=== PATIENT | male | born 1960 | race Caucasian/White ===

== ENCOUNTER 2023-02-21 10:27 | Day surgery (SDC) | payer OTHER ==
[~2023-02-21] VITALS: Ht 175.3 cm; Wt 129.7 kg
[~2023-02-21 10:27] MED LIST: ALOG25TA2 PO; FLO0.4C PO; ceFAZolin inj. 3,000 MG in normal saline 100ml IV soln 100 ML IV ONE; famotidine 20mg tablet PO ONE; ringers solution, lacted 1,000 ML IV SCH
[2023-02-21 11:00] VITALS: BP 122/70
[2023-02-21] MEDS ORDERED: [UNRECOGNIZED DRUG - OTHER] PO (11:18)
[2023-02-21] MEDS ORDERED: BERBERINE PO (11:18)
[2023-02-21] MEDS ORDERED: CYAN50003 PO (11:18)
[2023-02-21] MEDS ORDERED: LUTE40CA PO (11:18)
[2023-02-21 11:48] LABS: BASOPHILS % (AUTO) 0.3 % (0-1); EOSINOPHILS # (AUTO) 0.1 X10'3 (0-0.9); EOSINOPHILS % (AUTO) 1.1 % (0-6); LYMPHOCYTES # (AUTO) 2.8 X10'3 (1.1-4.8); MEAN CORPUSCULAR HEMOGLOBIN 31.4 PG (27.0-31.0); MEAN CORPUSCULAR HGB CONC 33.9 g/dL (33.0-36.5); MEAN CORPUSCULAR VOLUME 92.7 FL (78-98); MONOCYTES # (AUTO) 0.6 X10'3 (0-0.9); MONOCYTES % (AUTO) 7.1 % (2-12); NEUTROPHILS # (AUTO) 4.7 X10'3 (1.8-7.7); NEUTROPHILS % (AUTO) 57.5 % (42-75); PRE OP HEMOGLOBIN 14.6 g/dL (14.0-17.9); PRE OP PLATELET COUNT 198 X10'3 (140-440); RED BLOOD COUNT 4.64 X10'6 (4.70-6.10); RED CELL DISTRIBUTION WIDTH 13.4 % (11.5-14.5)
[2023-02-21 12:01] LABS: CLARITY,URINE CLEAR (Clear); COLOR,URINE STRAW (Yellow); GLUCOSE, URINE NEGATIVE (Neg); KETONES,URINE NEGATIVE (Neg); LEUKOCYTE ESTERASE ,URINE TRACE (Neg); NITRITES, URINE NEGATIVE (Neg); OCCULT BLOOD,URINE NEGATIVE (Neg); PROTEIN,URINE NEGATIVE (Neg); UROBILINOGEN,URINE 0.2 E.U/dL (0.2-1.0)
[2023-02-21 12:02] LABS: ALBUMIN 3.4 G/DL (3.4-5.0); ALBUMIN/GLOBULIN RATIO 1.1 (1.1-1.5); ALKALINE PHOSPHATASE 47 IU/L (46-116); BLOOD UREA NITROGEN 15 MG/DL (7-18); BUN/CREATININE RATIO 15.5 (10.0-20.0); CALCIUM 8.4 MG/DL (8.5-10.1); CHLORIDE 105 MMOL/L (99-107); CREATININE 0.97 MG/DL (0.60-1.10); PRE OP ALT 71 U/L (30-65); PRE OP ANION GAP 9 (8-16); PRE OP AST 33 U/L (10-37); PRE OP BILIRUB, TOTAL 0.5 MG/DL (0.0-1.0); PRE OP GLUCOSE 191 MG/DL (70-104); PRE OP SODIUM 139 MMOL/L (135-145); TOTAL CARBON DIOXIDE 25.2 MMOL/L (24-32); TOTAL PROTEIN 6.6 G/DL (6.4-8.2); eGFR 78 ML/MIN
[2023-02-21 12:03] LABS: UA COLLECTION TYPE CLN CATCH MIDSTREAM
[2023-02-21 12:08] LABS: BACTERIA,URINE FEW /HPF (Neg); MUCUS STRANDS NONE SEEN /LPF (Neg); RBC,URINE NONE SEEN /HPF (0-2); SQUAMOUS EPITHELIAL CELL,UR FEW /LPF (FEW); WBC,URINE 0-4 /HPF (0-4)
[2023-02-21] MEDS ORDERED: tranexamic acid inj. 1,000 MG in normal saline IV soln 100ML IV ONE (12:59)
[2023-02-21] MEDS ORDERED: fentaNYL /PF 50mcg/ml 5ml ampule ONE (13:10)
[2023-02-21] MEDS ORDERED: midazolam 1 mg/ML 2ml injection ONE (13:10)
[2023-02-21] MEDS ORDERED: ondansetron/PF 4mg/2ml inj ONE (13:29)
[2023-02-21] MEDS ORDERED: LIDOcaine 2% (20mg/ml) 5ml vial ONE (13:29)
[2023-02-21] MEDS ORDERED: dexamethasone sod phosphate 4mg/ml inj. ONE (13:29)
[2023-02-21] MEDS ORDERED: ROPIVAcaine 0.5% (5mg/ml) 30ml vial ONE (13:29)
[2023-02-21] MEDS ORDERED: propofol inj 20 ML IV ONE ×2 (13:29)
[2023-02-21] MEDS ORDERED: bacitracin 15gm ointment TP ONE (14:12)
[2023-02-21 14:29] VITALS: BP 165/56
--- NOTE | 2023-02-21 14:29 | NUR ---
Received from OR via [facility], accompanied by Anesthesiologist and report given by HANNHA Anesthesiologist. PATIENT WAKING UP, DENIES PAIN, V/S WNL, 20G TO RIGHT HAND, LEFT FOOT COLIN WRAP DRESSING C/D/I. Addendum: 02/21/23 at 1443 by Mika Patel RN Amended: Links added.
[2023-02-21] MEDS ORDERED: proCHLORperazine 10 MG/2 ml inj IV PRN (14:30)
[2023-02-21] MEDS ORDERED: acetaminophen 1,000mg/100ml IV 100 ML IV PRN (14:30)
[2023-02-21] MEDS ORDERED: hydrALAZINE 20mg/ml inj. IV PRN (14:30)
[2023-02-21] MEDS ORDERED: labetalol 20mg/4ml (5mg/ml) syringe IV PRN (14:30)
[2023-02-21] MEDS ORDERED: meperidine/PF 25mg/ml syringe IV PRN ×3 (14:30)
[2023-02-21] MEDS ORDERED: morphine 4 MG/ML inj SYRINge IV PRN (14:30)
[2023-02-21] MEDS ORDERED: morphine 2 MG/ML inj. syringe IV PRN (14:30)
[2023-02-21] MEDS ORDERED: ondansetron/PF 4mg/2ml inj IV PRN (14:30)
[2023-02-21] MEDS ORDERED: ringers solution, lacted 1,000 ML IV SCH (14:30)
[2023-02-21 14:40] VITALS: BP 145/86
[2023-02-21 14:50] VITALS: BP 146/79
[2023-02-21 15:00] VITALS: BP 149/85
[2023-02-21 15:10] VITALS: BP 152/82
--- NOTE | 2023-02-21 15:14 | NUR ---
ALL DISCHARGE CRITERIA HAS BEEN MET. VSS, PAIN AT A TOLERABLE LEVEL, ABLE TO SAFELY AMBULATE AND TRANSFER SELF. IV TAKEN OUT WITHOUT ANY COMPLICATIONS. ALL DISCHARGE INSTRUCTIONS COVERED WITH PATIENT AND ALL QUESTIONS ANSWERED. PATIENT TAKEN OUT VIA WHEELCHAIR WITH ALL BELONGINGS TO PERSONAL VEHICLE WHERE FAMILY DROVE PATIENT HOME. Addendum: 02/21/23 at 1530 by Mika Patel RN Amended: Links added.
== END 2023-02-21 15:14 | disposition home or self-care (01) ==
LOC: PAS 10:27
PROVIDERS: ATTEND Podiatrist Foot & Ankle Surgery
DX: S86.312A Strain of muscle(s) and tendon(s) of peroneal muscle group at lower leg level, left leg, initial encounter (principal); G47.30 Sleep apnea, unspecified; M19.90 Unspecified osteoarthritis, unspecified site; E11.9 Type 2 diabetes mellitus without complications; F43.10 Post-traumatic stress disorder, unspecified; X58.XXXA Exposure to other specified factors, initial encounter; Y93.89 Activity, other specified; Y92.89 Other specified places as the place of occurrence of the external cause; Y99.8 Other external cause status; Z79.899 Other long term (current) drug therapy; G89.18 Other acute postprocedural pain; Z98.890 Other specified postprocedural states; Z87.891 Personal history of nicotine dependence; Z88.8 Allergy status to other drugs, medicaments and biological substances; Z88.1 Allergy status to other antibiotic agents
CPT/HCPCS: 27690; 36415; 64450; 76942; 80053; 81001; 82948; 85025; 87088; 93005; A6223; J0690; J1100; J2250; J2405; J2704; J2795; J3010; J3490; J7030; J7120; Z7506; Z7508; Z7512; A4215; A4618; A6449; A7000